=== PATIENT | female | born 1960 | race Caucasian/White ===

== ENCOUNTER 2017-06-10 07:02 | Emergency (ER) | payer OTHER ==
[2017-06-10 07:08] VITALS: BP 142/95
--- NOTE | 2017-06-10 08:08 | UC ---
Javan Yuan Angela, scribed for FlorentinAbdelrahman sr MD on 06/10/17 at 0716 . Upper Extremity HPI - HPI Summary HPI Summary: This pt is a 57 y/o right hand dominant female presenting to [facility] c/o left elbow pain s/p fall 3 days ago. Pt reports she fell out of wooden stairs and felt immediate pain. She notes now she feels discomfort in her elbow and has swelling. 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 Pt has never injured this elbow before. Last time she saw her doctor was a couple of months ago. Pt denies any PMHx of fractures. MD's Note: Pt's vitals signs are stable. She rates her pain 3 out of 10 in severity. Previous visits are noncontributory. Nurse's Note: Pt fell down her stairs on friday. pt states her lt elbow is swollen and bruised and tender. - History of Current Complaint Chief Complaint: UCUpperExtremity Stated Complaint: ELBOW INJURY Hx Obtained From: Patient Onset/Duration: Lasting Days Pain Intensity: 3 Pain Scale Used: 0-10 Numeric Location Of Pain: Is Discrete @ - left elbow Associated Signs And Symptoms: Positive: Swelling, Bruising Related History: Dominant Hand Right - Allergies/Home Medications Allergies/Adverse Reactions: Allergies Allergy/AdvReac Type Severity Reaction Status Date / Time Penicillins [PCN] Allergy Unknown Verified 06/10/17 07:08 Reaction Details Home Medications: Home Medications Ibuprofen [Advil] 800 mg PO 06/10/17 [History] PMH/Surg Hx/FS Hx/Imm Hx - Additional Past Medical History Additional PMH: Pt notes she was hospitalized in 2014 for a bad reaction after taking penicillin. - Surgical History Surgical History: Yes Surgery Procedure, Year, and Place: [facility] - Family History Known Family History: Positive: Hypertension, Diabetes, Other - cancer - Social History Occupation: Employed Full-time - Pt cleans Alcohol Use: Rare Substance Use Type: None Smoking Status (MU): Heavy Every Day Tobacco Smoker Type: Cigarettes Review of Systems Constitutional: Negative Skin: Negative Eyes: Negative ENT: Negative Respiratory: Negative Cardiovascular: Negative Gastrointestinal: Negative Genitourinary: Negative Motor: Negative Neurovascular: Negative Musculoskeletal: Other: - There is pain and swelling over the left elbow Neurological: Negative Psychological: Negative All Other Systems Reviewed And Are Negative: Yes Physical Exam Triage Information Reviewed: Yes Appearance: Well-Appearing, No Pain Distress, Well-Nourished Vital Signs: Initial Vital Signs Temp 97.1 F 06/10/17 07:04 Pulse 92 06/10/17 07:04 Resp 18 06/10/17 07:04 BP 142/95 06/10/17 07:04 Pulse Ox 99 06/10/17 07:04 Vital Signs Reviewed: Yes Eyes: Positive: Conjunctiva Clear ENT: Positive: Hearing grossly normal, Pharynx normal, TMs normal. Negative: Muffled/hoarse voice Neck: Positive: Supple, No Lymphadenopathy Respiratory: Positive: Chest non-tender Cardiovascular: Positive: RRR, No Murmur Musculoskeletal: Positive: Strength Intact, Other: - LUE: LEFT ARM HAS MODERATE SWELLING OF THE PROXIMAL ULNA. THERE IS POINT TENDERNESS OVER THE OLECRANON. THERE IS FULL ROM, SWELLING, AND ECCHYMOSIS OVER THE DORSAL ASPECT OF THE FOREARM. DISTAL STRENGTH AND CIRCULATION IS NORMAL. Neurological: Positive: Alert Psychological Exam: Normal Psychological: Positive: Age Appropriate Behavior Skin: Negative: rashes Diagnostics - Radiology Left elbow XR Xray Interpretation: No Acute Changes - XR is normal, no fractures Radiology Interpretation Completed By: ED Physician Upper Extremity Course/Dx - Course Course Of Treatment: Medications have been included in the original chart and reviewed. On exam, the LEFT ARM HAS MODERATE SWELLING OF THE PROXIMAL ULNA. THERE IS POINT TENDERNESS OVER THE OLECRANON. THERE IS FULL ROM, SWELLING, AND ECCHYMOSIS OVER THE DORSAL ASPECT OF THE FOREARM. DISTAL STRENGTH AND CIRCULATION IS NORMAL. Patient is Urgent/Emergent. BP elevated due to current condition w/o HTN in PMH. MDM: XR is normal. Pt has contused her upper forearm. - Differential Dx/Diagnosis Provider Diagnoses: Contusion of the left forearm without fracture. Discharge - Discharge Plan Condition: Stable Disposition: HOME Patient Education Materials: Contusion in Adults (ED), Elbow Sprain (ED) Forms: *Work Release Referrals: Maricel Santoro PA-C [Primary Care Provider] - Additional Instructions: Thank you for helping us improve patient care by filling out the [employer] Survey. As we discussed: you have a bruise of your lower left arm and elbow. Also some stretched tendons. Use shadia when working; elevate at night. Ice to area for discomfort. If radiologist sees any problems in your x ray, I will call you. No work until tomorrow. The documentation as recorded by the Javan carbajal Angela accurately reflects the service I personally performed and the decisions made by me, Abdelrahman Mcdowell MD.
--- NOTE | 2017-06-10 08:19 | RAD ---
INDICATION: Left elbow pain and swelling after falling 3 days earlier COMPARISON: None. TECHNIQUE: 4 views left elbow. REPORT: On the lateral view there is mild induration of the subcutaneous fat overlying the posterior humeral condyles consistent with ecchymosis. The visualized bones of the left elbow are well corticated and properly aligned. There is no radiographically apparent fracture or dislocation. There is no radiographic evidence of pathologic joint effusion. IMPRESSION: No radiographically apparent fracture or dislocation involving the left elbow. If the patient's symptoms persist further follow-up imaging is recommended.
== END 2017-06-10 08:03 | disposition home or self-care (01) ==
LOC: UCEAST 07:02
DX: S50.12XA Contusion of left forearm, initial encounter (principal); W10.9XXA Fall (on) (from) unspecified stairs and steps, initial encounter; Z88.0 Allergy status to penicillin; F17.210 Nicotine dependence, cigarettes, uncomplicated
CPT/HCPCS: 99212; G0463

== ENCOUNTER 2019-03-30 11:21 | Emergency (ER) | payer BC, OTHER ==
[2019-03-30 11:48] VITALS: BP 135/89
--- NOTE | 2019-03-30 13:12 | UC ---
UC General HPI - HPI Summary HPI Summary: Here with b/l lower extremity pain, worse on right then left. Leg pain has been going on for months, comes and goes. Seems to be more frequent over the past few weeks. States it is in the front of her legs, sometimes she gets cramping calf pain and then it will travel up to her knees. No trauma. 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 It has gotten better after she got better supportive sneakers. Ibuprofen helps. Nothing seems to make it worse. Smokes 1/2 ppd Meds; Reviewed States she was in the area and her PCP is in [place] so she thought this would be better - History of Current Complaint Chief Complaint: UCLowerExtremity Stated Complaint: LEG PAIN Time Seen by Provider: 03/30/19 12:39 Pain Intensity: 7 - Allergy/Home Medications Allergies/Adverse Reactions: Allergies Allergy/AdvReac Type Severity Reaction Status Date / Time Penicillins Allergy Unknown Verified 03/30/19 11:48 Reaction Details Home Medications: Home Medications Aspirin/Acetaminophen/Caffeine [Excedrin Extra Strength Caplet] 1 each PO [History] Aspirin/Caffeine [Nancy Back & Body Pain Ex] 1 tab PO 03/30/19 [History] PMH/Surg Hx/FS Hx/Imm Hx Previously Healthy: Yes - Surgical History Surgical History: Yes Surgery Procedure, Year, and Place: [place] - Family History Known Family History: Positive: Hypertension, Diabetes, Other - cancer - Social History Alcohol Use: Rare Substance Use Type: None Smoking Status (MU): Light Every Day Tobacco Smoker Type: Cigarettes Review of Systems All Other Systems Reviewed And Are Negative: Yes Physical Exam Triage Information Reviewed: Yes Appearance: Well-Appearing Vital Signs: Initial Vital Signs Temp 98.2 F 03/30/19 11:43 Pulse 89 03/30/19 11:43 Resp 18 03/30/19 11:43 BP 135/89 03/30/19 11:43 Pulse Ox 97 03/30/19 11:43 Vital Signs Reviewed: Yes Musculoskeletal: Positive: Other: - +1 DP's b/l, no significant pain with tenderness over saunders or calf. No edema or erythema. FROM. Mild venous insuffiency on RLE Course/Dx - Course Course Of Treatment: This is a 58 yr old with b/l lower ext pain worse on right Assessment I suspect arthritis and musculoskeletal related due to being on her feet all day Could be claudication but pulses good b/l Plan Recommend good support sneakers Rest and elevate legs when you can Can continue tylenol and/or ibuprofen as needed for pain Recommend compression socks when you are on your feet all day We will contact you if your bloodwork is abnormal DIscontinue smoking If symptoms persist or worsen, recommend follow up with PCP - discuss circulatory issues - Diagnoses Provider Diagnosis: Bilateral lower extremity pain Discharge - Sign-Out/Discharge Documenting (check all that apply): Patient Departure All imaging exams completed and their final reports reviewed: No Studies - Discharge Plan Condition: Good Disposition: HOME Prescriptions: Compression Socks, Medium [Futuro Restoring] 1 each MC DAILY #7 each Forms: *Work Release Referrals: Maricel Santoro PA-C [Primary Care Provider] - Additional Instructions: Recommend good support sneakers Rest and elevate legs when you can Can continue tylenol and/or ibuprofen as needed for pain Recommend compression socks when you are on your feet all day We will contact you if your bloodwork is abnormal DIscontinue smoking If symptoms persist or worsen, recommend follow up with PCP - discuss circulatory issues - Billing Disposition and Condition Condition: GOOD Disposition: Home
[2019-03-30 19:08] LABS: Hematocrit 43 % (35-47); Hemoglobin 14.7 g/dL (12.0-16.0); Mean Corpuscular HGB Conc 34 g/dL (31-36); Mean Corpuscular Hemoglobin 33 pg (27-31); Mean Corpuscular Volume 96 fL (80-97); Mean Platelet Volume 8.3 fL (7.4-10.4); Platelet Count 231 10^3/uL (150-450); Red Cell Distribution Width 13 % (10-15); White Blood Count 10.8 10^3/uL (3.5-10.8)
[2019-03-30 19:18] LABS: Calcium 9.4 mg/dL (8.6-10.3); Magnesium 1.9 mg/dL (1.9-2.7); Potassium 4.1 mmol/L (3.5-5.0)
[2019-03-30 19:23] LABS: BUN/Creatinine Ratio 28.8 (8-20); EGFR African American 127.6 (>60); EGFR Non-African American 105.4 (>60)
[2019-03-30 19:33] LABS: ABS Basophils 0.1 10^3/ul (0-0.2); ABS Eosinophils 0.3 10^3/ul (0-0.6); ABS Lymphocytes 2.7 10^3/ul (1.0-4.8); ABS Monocytes 0.7 10^3/ul (0-0.8); Eosinophil % 2.4 %; Lymphocyte % 25.3 %
--- NOTE | 2019-03-31 10:34 | UC ---
- Progress Note Progress Note: Laboratory results come back from March 30, 2019. Glucose is slightly elevated at 139. Otherwise CBC and CMP labs essentially normal. Nursing to call patient inform her of the elevated glucose and this should be rechecked with her primary care doctor. Course/Dx - Diagnoses Provider Diagnoses: Bilateral lower extremity pain Discharge - Sign-Out/Discharge Documenting (check all that apply): Patient Departure All imaging exams completed and their final reports reviewed: No Studies - Discharge Plan Condition: Good Disposition: HOME Prescriptions: Compression Socks, Medium [Futuro Restoring] 1 each MC DAILY #7 each Forms: *Work Release Referrals: Maricel Santoro PA-C [Primary Care Provider] - Additional Instructions: Recommend good support sneakers Rest and elevate legs when you can Can continue tylenol and/or ibuprofen as needed for pain Recommend compression socks when you are on your feet all day We will contact you if your bloodwork is abnormal DIscontinue smoking If symptoms persist or worsen, recommend follow up with PCP - discuss circulatory issues - Billing Disposition and Condition Condition: GOOD Disposition: Home
== END 2019-03-30 13:32 | disposition home or self-care (01) ==
LOC: UCEAST 11:21
DX: M79.605 Pain in left leg (principal); M79.604 Pain in right leg; F17.210 Nicotine dependence, cigarettes, uncomplicated
CPT/HCPCS: 36415; 80048; 83735; 85025; 99212; G0463

== ENCOUNTER → 2019-08-13 | Day surgery (SDC) | payer BC ==
[~2019-08-13] MED LIST: Buffered Lidocaine 1% SYRIN* 1 ML/SYRINGE INTRADERM ONE; Bupivacaine 0.5%* 50 ML MDV VIAL ONE; Clindamycin 900 MG/D5W BAG(*) 900 MG/50 ML BAG IVPB ONE; Dexamethasone IV* 4 MG/ML 1 ML (4 MG) ONE; EPINEPHRINE 1 MG/ML 1 ML VIAL ONE; Famotidine IV* 10 MG/ML 2 ML (20 mg) IV ONE; Famotidine IV* 10 MG/ML 2 ML (20 mg) ONE; KETAMINE HCL* 50 MG/ML 10 ML VIAL ONE; Ketorolac INJ* 30 MG/ML 1 ML VIAL ONE; Lactated Ringers 1000 ML Bag* 1,000 ML IV SCH; Lidocaine 2% PF * 5 ML VIAL ONE; Midazolam* 1 MG/ML 5 ML VIAL (5 MG) ONE; Naloxone* 0.4 MG/ML 1 ML VIAL IV PRN; Ondansetron INJ* 2 MG/ML VIAL IV PRN; Ondansetron INJ* 2 MG/ML VIAL ONE; Propofol* 10 MG/ML 20 ML BTL ONE; VASOPRESSIN 20 UNITS/ML 1 ML VIAL ONE; ceFAZolin 2 GM in NS PREMIX(*) 2 GM/100 ML BAG IVPB ONE; fentaNYL* 50 MCG/ML 2 ML VIAL (100 MCG VIAL) IV PRN; fentaNYL* 50 MCG/ML 2 ML VIAL (100 MCG VIAL) ONE
[2019-08-13 14:17] VITALS: BP 144/96
--- NOTE | 2019-08-14 15:55 | OP ---
OPERATIVE REPORT: DATE OF OPERATION: 08/13/19 DATE OF : 64 SURGEON: Johnathan Epperson MD CONSTRUCTION CREW MEMBER: ROSIBEL Mars A physician agency sales management assistant was required for the length of procedure for assistance with knee manipulation, patient positioning, instrumentation, and closure. ANESTHESIOLOGIST: Dr. Carlos Soriano. ANESTHESIA: General anesthesia, local anesthesia. PRE-OP DIAGNOSES: 1. Right knee medial meniscus tear. 2. Right knee lateral meniscus tear. 3. 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 4. Right knee mild osteoarthritis. POST-OP DIAGNOSES: 1. Right knee medial meniscus tear. 2. Right knee lateral meniscus tear. 3. Intact right knee anterior cruciate ligament. 4. Right knee mild osteoarthritis. OPERATIVE PROCEDURE: Right knee arthroscopic partial medial and partial lateral meniscectomy. ANTIBIOTICS: Clindamycin 900 mg IV. IV FLUIDS: See Anesthesia note. SKIN TO SKIN TIME: 25 minutes. TOURNIQUET TIME: 29 minutes at 300 mmHg, right thigh. SPECIMEN: None. IMPLANTS: None. COMPLICATIONS: None. ESTIMATED BLOOD LOSS: Minimal. INDICATIONS FOR PROCEDURE: The patient is a 59-year-old woman who presented to my clinic complaining of severe right knee pain since early 2018. This was refractory to a full spectrum of nonoperative treatment. Given the significance of the patient's effusions, I even tested her for Lyme disease; te sting was negative. The patient is a smoker with a history of half pack per day. MRI demonstrated a horizontal tear, anterior horn lateral meniscus as well as a longitudinal tear with likely free frag ment about the root of the medial meniscus. There is some degeneration of the ACL clearly visible. Discussed risks and potential complications of surgery with the patient and she was comfortable with these. I discussed how when the knee has arthritis in it, the recovery and improvement with partial meniscectomy surgery is less predictable. DESCRIPTION OF PROCEDURE: In preoperative holding, the patient signed a written consent. Operative extremity was marked in preoperative holding. The patient was taken back to the operating room and p laced supine on the operating room table. Sedated and intubated. Right proximal thigh placed in a to urniquet. Right distal thigh placed in a thigh cardoso. The table was elevated and the foot of the t able was dropped. Right lower extremity was prepped and draped. Surgical time-out performed. Esmar ch was applied and tourniquet was elevated. I established anterolateral knee arthroscopy portal using standard technique. Commenced my diagnostic arthroscopy. The patient had some grade 2 to 3 wear on the undersurface of the patella of the artic ular cartilage. I next moved inferior. Visualized medial compartment and some clear tearing to the m edial meniscus. Established anteromedial knee arthroscopy portal under direct visualization. Debrided some synovitic tissue anteriorly in the knee. I next probed the medial meniscus. There was a flap fragment of meniscus near the junction of the posterior horn and body of the medial meniscus. I debr ided that flap with a combination of meniscus biters and arthroscopic shaver. I probed the length of the meniscus from anterior to posterior and did not find any more flap fragments. There was some de generation and tearing along the inner aspect of the meniscus, elsewhere posterior horn and body that I smoothed out with an arthroscopic shaver. I next moved to the lateral compartment. There was lot of inflamed tissue and some degeneration abou t the anterior horn of the lateral meniscus. I smoothed this out with arthroscopic shaver. In the b april of the lateral meniscus undersurface, there was a flap of meniscus that I removed with meniscal b iters and arthroscopic shaver to smooth out. There were degenerative changes in both medial and lateral compartments, articular cartilage. There were pretty diffuse grade 2 changes in the medial femoral condyle. On the lateral side, there was li ttle bit more focal grade 2 and 3 changes on the femoral side and diffuse grade 1 changes on the tibi al side. I returned to the patellofemoral compartment at the end of the case and confirmed some grad e 2 to 3 changes on the undersurface of the patella. I also probed the ACL. I put my arthroscopic probe posterior to the ACL and tugged on it and there w as no laxity whatsoever. Fibers of the ACL are very robustly present. I did not debride along the A CL to confirm its posterior attachment on femur because this would have been academic. Unfortunately for some reason, photographs of me with the probe on the ACL are not present in the photos that were printed. Removed instruments and fluid from knee. Closed skin incisions with figure-of- eight and 12 stitches using nylon 3-0 suture. Local anesthesia injected about the incisions. Xeroform, 4x4's, ABD, steri le [place], Michael bandage from foot to proximal groin. Cooling unit. The patient was awakened and extu bated, transferred to the PACU. DISPOSITION: The patient was discharged when medically stable. Wound care instructions provided. P ercocet as needed for pain control and aspirin for DVT prophylaxis. The patient will follow up in 10 to 14 days postoperatively. The patient will immediately start physical therapy. [id number]/[facility] #: [id number]
== END | disposition home or self-care (01) ==
LOC: OR 09:50
PROVIDERS: ATTEND Orthopaedic Surgery
DX: S83.241A Other tear of medial meniscus, current injury, right knee, initial encounter (principal); S83.281A Other tear of lateral meniscus, current injury, right knee, initial encounter; M25.461 Effusion, right knee; X58.XXXA Exposure to other specified factors, initial encounter; Y92.9 Unspecified place or not applicable; M17.11 Unilateral primary osteoarthritis, right knee; J45.909 Unspecified asthma, uncomplicated; I10 Essential (primary) hypertension; Z88.0 Allergy status to penicillin; F17.210 Nicotine dependence, cigarettes, uncomplicated
CPT/HCPCS: J0690; J1100; J1885; J2250; J2405; J2704; J3010; J3490